=== PATIENT | male | born 1995 | race Caucasian/White ===

== ENCOUNTER 2017-11-30 19:06 | Emergency (ER) | payer OTHER ==
[~2017-11-30] VITALS: Ht 177.8 cm; Wt 101.7 kg
[2017-11-30 19:34] LABS: HEMATOCRIT 40.7 % (38.0-50.0); HEMOGLOBIN 14.6 G/DL (12.5-16.6); MCH 32.7 PG (29.0-34.0); MCHC 35.9 G/DL (30.0-36.0); MCV 91.1 FL (86-99); PLATELET COUNT 325 K/uL (156-360); RBC DIS.WIDTH-CV 11.6 % (11.8-14.6); RBC DIS.WIDTH-SD 38.9 % (39-53); RED BLOOD COUNT 4.47 M/uL (4.00-5.50); WHITE BLOOD COUNT 7.5 K/uL (4.1-10.2)
[2017-11-30 19:44] LABS: CHLORIDE 103 mEq/L (99-109); SODIUM 139 mEq/L (136-147)
[2017-11-30 20:12] LABS: GLUCOSE 100 mg/dL (70-99)
[2017-11-30 20:16] LABS: CREATININE 1.2 mg/dL (0.6-1.3); GFR ESTIMATE (CALCULATED) > 59 mL/min/ (58.99-99999); UREA NITROGEN (BUN) 19 mg/dL (9-23)
[2017-11-30 20:31] LABS: CREATINE KINASE 209 IU/L (1-294)
[2017-11-30 20:49] LABS: TROP-I INTERPRETATION NEGATIVE; TROPONIN-I < 0.01 ng/mL (0.0-0.30)
[2017-11-30 22:32] LABS: TROP-I INTERPRETATION NEGATIVE; TROPONIN-I < 0.01 ng/mL (0.0-0.30)
[2017-11-30 22:44] VITALS: BP 159/86
== END 2017-11-30 22:44 | disposition home or self-care (01) ==
LOC: EME 19:06
PROVIDERS: Physician Assistant
DX: R07.9 Chest pain, unspecified (principal); I10 Essential (primary) hypertension; R25.2 Cramp and spasm; Z87.891 Personal history of nicotine dependence
CPT/HCPCS: 71046; 80048; 82550; 84484; 85027; 93005; 99281; 99284